=== PATIENT | male | born 1965 | race Two or more races ===

== ENCOUNTER 2020-12-25 14:16 | Emergency (ER) | payer OTHER ==
[~2020-12-25] VITALS: Ht 182.9 cm; Wt 86.2 kg
[2020-12-25] MEDS ORDERED: DESCOVY 200-251 EACH (14:49)
[2020-12-25] MEDS ORDERED: DICLOFENAC SODI75 MG PO (17:15)
== END 2020-12-25 17:28 | disposition home or self-care (01) ==
LOC: ER 14:16
DX: S99.819A Other specified injuries of unspecified ankle, initial encounter (principal); W17.2XXA Fall into hole, initial encounter; Y92.410 Unspecified street and highway as the place of occurrence of the external cause

== ENCOUNTER 2022-02-04 10:13 | Outpatient (CLI) | payer OTHER ==
[~2022-02-04 10:13] MED LIST: DESCOVY 200-251 EACH; DICLOFENAC SODI75 MG PO
== END 2022-02-04 10:18 | disposition home or self-care (01) ==
LOC: RAD 10:13
DX: M79.671 Pain in right foot (principal); M79.672 Pain in left foot; M21.41 Flat foot [pes planus] (acquired), right foot; M21.42 Flat foot [pes planus] (acquired), left foot

== ENCOUNTER 2022-03-15 09:49 | Outpatient (CLI) | payer OTHER | END 2022-03-15 09:52 | disposition home or self-care (01) | LOC: RAD 09:49 | PROVIDERS: ATTEND Orthopaedic Surgery | DX: M76.821 Posterior tibial tendinitis, right leg (principal); M25.511 Pain in right shoulder ==

== ENCOUNTER 2023-05-17 08:18 | Outpatient (CLI) | payer OTHER ==
[2023-05-17 09:20] LABS: HEMATOCRIT 43.5 % (39.0-48.0); HEMOGLOBIN 14.8 g/dL (13-16.00); MEAN CELL VOLUME 96.8 fL (80.0-100.00); MEAN CORPUSCULAR HEMOGLOBIN 32.9 pg (27.00-32.0); PLATELET COUNT 187 K/uL (150-450)
[2023-05-17 09:35] LABS: URINE APPEARANCE Turbid; URINE BILIRRUBIN Negative (NEGATIVE); URINE BLOOD Negative; URINE COLOR Yellow; URINE GLUCOSE Negative (NEGATIVE); URINE LEUKOCYTE Large; URINE NITRATE Positive; URINE PROTEIN Negative (NEGATIVE)
[2023-05-17 09:38] LABS: URINE BACTERIA 6463.7 uL (0.0-1933); URINE EPITHELIAL CELLS 22.2 uL (0.0-38.8); URINE RBC 6.8 uL (0.0-20.8)
[2023-05-17 09:46] LABS: ALBUMIN 3.1 gm/dL (3.4-5.0); BILIRUBIN TOTAL 0.46 mg/dL (0.3-1.2); CALCIUM 9.3 mg/dL (8.5-10.1); CREATININE SERUM 0.88 mg/dL (0.70-1.30); GFR 88.94; GLOBULINA 3.3 G/DL (2.4-3.5); POTASSIUM 4.62 mEq/L (3.5-5.1); TOTAL PROTEIN 6.4 gm/dL (6.4-8.2)
[2023-05-17 09:47] LABS: COL EPI 75 SECONDS (82-175)
[2023-05-17 09:54] LABS: INR 0.98; PARTIAL THROMBOPLASTIN TIME 29.6 SECONDS (22.0-34.0); PROTHROMBIN TIME 10.3 SECONDS (9.0-11.5)
[2023-05-17 10:19] LABS: URINE CRYSTALS MODERATE /HPF
== END 2023-05-17 08:20 | disposition home or self-care (01) ==
LOC: LAB 08:18
PROVIDERS: ATTEND Orthopaedic Surgery
DX: Z76.89 Persons encountering health services in other specified circumstances (principal); I10 Essential (primary) hypertension; D64.9 Anemia, unspecified; E88.89 Other specified metabolic disorders; D68.8 Other specified coagulation defects; N39.0 Urinary tract infection, site not specified; Z22.322 Carrier or suspected carrier of Methicillin resistant Staphylococcus aureus; E11.9 Type 2 diabetes mellitus without complications

== ENCOUNTER 2023-05-26 14:06 | Outpatient (CLI) | payer OTHER | END 2023-05-26 14:09 | disposition home or self-care (01) | LOC: RAD 14:06 | PROVIDERS: ATTEND Orthopaedic Surgery | DX: M79.672 Pain in left foot (principal); M25.572 Pain in left ankle and joints of left foot; M21.061 Valgus deformity, not elsewhere classified, right knee; M21.062 Valgus deformity, not elsewhere classified, left knee ==

== ENCOUNTER 2024-01-24 12:11 | Outpatient (CLI) | payer OTHER | END 2024-01-24 12:18 | disposition home or self-care (01) | LOC: MRI 12:11 | DX: I70.0 Atherosclerosis of aorta (principal); J84.10 Pulmonary fibrosis, unspecified | CPT/HCPCS: 71550 ==

== ENCOUNTER 2024-04-08 16:03 | Emergency (ER) | payer OTHER ==
[~2024-04-08] VITALS: Ht 182.9 cm; Wt 86.2 kg
[2024-04-08] MEDS ORDERED: LIDOCAINE HCL 1% 10ML VIAL IJ STA (17:38)
[2024-04-08] MEDS ORDERED: LIDOCAINE HCL 1% 10ML VIAL ONE (18:19)
[2024-04-08] MEDS ORDERED: CEFTRIAXONE SODIUM 1,000 MG VIAL IM STA (18:46)
[2024-04-08] MEDS ORDERED: TETANUS & DIPHTHERIA TOX,ADULT 0.5 ML VIAL IM STA (18:47)
[2024-04-08] MEDS ORDERED: DIPHTH,PERTUSS(ACELL),TET VAC 0.5 ML SYRINGE IM ONE (18:50)
[2024-04-08] MEDS ORDERED: CEFTRIAXONE SODIUM 1,000 MG VIAL ONE (19:02)
== END 2024-04-08 19:36 | disposition home or self-care (01) ==
LOC: ER 16:05
DX: S51.012A Laceration without foreign body of left elbow, initial encounter (principal); S80.02XA Contusion of left knee, initial encounter; S80.01XA Contusion of right knee, initial encounter; S50.01XA Contusion of right elbow, initial encounter; S80.12XA Contusion of left lower leg, initial encounter; V19.9XXA Pedal cyclist (driver) (passenger) injured in unspecified traffic accident, initial encounter; Y93.89 Activity, other specified; Y92.89 Other specified places as the place of occurrence of the external cause; Y99.9 Unspecified external cause status; M17.0 Bilateral primary osteoarthritis of knee

== ENCOUNTER 2024-09-03 19:34 | Emergency (ER) | payer OTHER ==
[~2024-09-03] VITALS: Ht 180.3 cm; Wt 89.8 kg
[2024-09-03] MEDS ORDERED: CEFTRIAXONE SODIUM 2,000 MG VIAL IV ONE (20:15)
[2024-09-03] MEDS ORDERED: 0.9 % SODIUM CHLORIDE 1,000 ML IV SCH (20:15)
[2024-09-03] MEDS ORDERED: CEFTRIAXONE SODIUM 2,000 MG VIAL ONE (20:38)
[2024-09-03 21:01] LABS: URINE APPEARANCE Turbid; URINE BILIRRUBIN Negative (NEGATIVE); URINE BLOOD Small; URINE COLOR Yellow; URINE GLUCOSE Negative (NEGATIVE); URINE KETONE Negative (NEGATIVE); URINE LEUKOCYTE Large; URINE NITRATE Negative; URINE UROBILINOGEN 1.0 E.U./dl
[2024-09-03 21:03] LABS: BASO % 0.4 % (0.1-1.2); EOS # 0.01 (0.04-0.54); EOS % 0.1 % (0.7-7.0); LYMPH # 1.77 (1.18-3.74); LYMPH % 17.7 % (19.3-53.1); MEAN PLATELET VOLUME 10.80 fl (9.4-12.4); MONO # 1.56 (0.24-0.82); NEUT # 6.61 (1.56-6.13); NEUT % 65.9 % (34.0-71.1); RED CELL DISTRIBUTION WIDTH 12.3 % (11.6-14.4)
[2024-09-03 21:05] LABS: URINE EPITHELIAL CELLS 3.6 uL (0.0-38.8); URINE RBC 7.6 uL (0.0-20.8)
[2024-09-03 21:11] LABS: MONO % 15.6 % (4.7-12.5)
[2024-09-03 21:17] LABS: URINE BACTERIA > 9821.5 uL (0.0-1933); URINE CAST 0.87 uL (0.0-1.40); URINE PROTEIN 100 (NEGATIVE); URINE WBC > 5548.3 uL (0.0-23.2)
[2024-09-03 21:29] LABS: ALT/SGPT 14.0 U/L (12-78); AST/SGOT 7.0 U/L (15-37); BILIRUBIN TOTAL 0.6 mg/dL (0.3-1.2); BUN CREA RATIO 18.0 (7.0-25.0); CREATININE SERUM 1.02 mg/dL (0.70-1.30); GFR 74.75; GLOBULINA 4.5 G/DL (2.4-3.5); GLUCOSE FASTING 92.0 mg/dL (65-100); OSMOLALITY SERUM 272.0 MOSM/KG (275-295); PROSTATIC SPECIFIC ANTIGEN 2.91 NG/ML (0.010-4.00)
[2024-09-03] MEDS ORDERED: TAMS0.4C PO (22:02)
[2024-09-03] MEDS ORDERED: LEVOFLOXACIN750 MG PO (22:02)
== END 2024-09-03 22:44 | disposition home or self-care (01) ==
LOC: ER 19:34
PROVIDERS: General Practice
DX: N39.0 Urinary tract infection, site not specified (principal); R10.9 Unspecified abdominal pain; R30.0 Dysuria; I10 Essential (primary) hypertension

== ENCOUNTER 2024-10-08 10:57 | Outpatient (CLI) | payer OTHER ==
[~2024-10-08 10:57] MED LIST changes: +LEVOFLOXACIN750 MG PO; +TAMS0.4C PO
== END 2024-10-08 11:11 | disposition home or self-care (01) ==
LOC: SONOGRAMA 10:57
PROVIDERS: ATTEND Urology
DX: N30.00 Acute cystitis without hematuria (principal); R33.9 Retention of urine, unspecified

== ENCOUNTER 2024-11-16 15:21 | Outpatient (CLI) | payer OTHER | END 2024-11-16 15:27 | disposition home or self-care (01) | LOC: MRI 15:21 | PROVIDERS: ATTEND Family Medicine Geriatric Medicine | DX: M54.16 Radiculopathy, lumbar region (principal) | CPT/HCPCS: 72148 ==